=== PATIENT | male | born 1995 | race Caucasian/White ===

== ENCOUNTER 2017-07-15 18:27 | Emergency (ER) | payer OTHER ==
[~2017-07-15] VITALS: Ht 177.8 cm; Wt 63.4 kg
[2017-07-15 18:32] VITALS: BP 119/81
== END 2017-07-15 19:00 | disposition home or self-care (01) ==
LOC: ED 18:54
DX: Z20.2 Contact with and (suspected) exposure to infections with a predominantly sexual mode of transmission (principal)
CPT/HCPCS: 99281